=== PATIENT | female | born 1965 | race Hispanic/Latino ===

== ENCOUNTER 2017-12-30 10:11 | Emergency (ER) | payer BC, OTHER ==
[2017-12-30 10:24] VITALS: BMI 41.5
--- NOTE | 2017-12-30 11:13 | ED PDOC ---
Lower Extremity Pain/Injury Time Seen by Provider: 12/30/17 10:38 Chief Complaint (Nursing): Lower Extremity Problem/Injury Chief Complaint (Provider): Swelling of Bilateral Lower Extremities History Per: Patient History/Exam Limitations: no limitations Onset/Duration Of Symptoms: Days (3x), Worse Since Current Symptoms Are (Timing): Still Present Additional Complaint(s): 52 year old female with a past medical history of hypertension and status post partial thyroidectomy presents to the ED for an evaluation of bilateral lower legs swelling onset 3 days. Patient takes Synthroid and was recently started on hypertensive medication and Lisinopril 10mg. Patient also has been traveling by car on long trips. She denies calf pain, fever, shortness of breath or chest pain. PMD: Fransico Suarez Past Medical History Reviewed: Historical Data, Nursing Documentation, Vital Signs Vital Signs: Last Vital Signs Temp 98 F 12/30/17 10:23 Pulse 72 12/30/17 10:23 Resp BP 137/80 12/30/17 10:23 Pulse Ox 98 12/30/17 10:23 - Medical History PMH: HTN - Surgical History Surgical History: Tonsillectomy Other surgeries: partial thyroidectomy - Family History Family History: States: Unknown Family Hx - Social History Ex-Smoker (has not smoked in the last 12 months): No Alcohol: Social Drugs: Denies - Immunization History Hx Tetanus Toxoid Vaccination: No Hx Influenza Vaccination: No Hx Pneumococcal Vaccination: No - Home Medications Home Medications: Ambulatory Orders Medication Instructions Recorded amLODIPine [Norvasc] 5 mg PO DAILY #30 tab 12/30/17 - Allergies Allergies/Adverse Reactions: Allergies Allergy/AdvReac Type Severity Reaction Status Date / Time latex Allergy RASH Verified 07/17/15 16:59 shellfish derived Allergy ANAPHYLAXIS Verified 07/17/15 16:59 shrimp Allergy ANAPHYLAXIS Verified 07/17/15 16:59 Review of Systems ROS Statement: Except As Marked, All Systems Reviewed And Found Negative Constitutional: Negative for: Fever Cardiovascular: Negative for: Chest Pain Respiratory: Negative for: Shortness of Breath Musculoskeletal: Positive for: Foot Pain (bilateral). Negative for: Other ( calf pain) Physical Exam - Reviewed Nursing Documentation Reviewed: Yes Vital Signs Reviewed: Yes - Physical Exam Appears: Positive for: Non-toxic, No Acute Distress Head Exam: Positive for: ATRAUMATIC, NORMAL INSPECTION, NORMOCEPHALIC Skin: Positive for: Normal Color, Warm, Dry Cardiovascular/Chest: Positive for: Regular Rate, Rhythm. Negative for: Murmur Respiratory: Positive for: Normal Breath Sounds. Negative for: Decreased Breath Sounds, Wheezing, Respiratory Distress Extremity: Positive for: Normal ROM, Swelling (2+ bilateral feet, ankle to mid pineda). Negative for: Calf Tenderness, Deformity, Other (erythema, Delphine's sign ) Neurologic/Psych: Positive for: Alert, Oriented (x3) - Laboratory Results Result Diagrams: 12/30/17 11:20 12/30/17 12:25 - ECG O2 Sat by Pulse Oximetry: 98 (RA) Pulse Ox Interpretation: Normal Medical Decision Making Medical Decision Making: Time: 1100 Initial Impression: swelling of bilateral lower extremities Initial Plan: --CMP --Thyroid Stimulating Hormone --CBC w/ Differential --Duplex Lower Extremity Vein Bilat [US] --Reevaluation Scribe Attestation: Documented by Lorenzo Wise, acting as a scribe for Pietro Molina MD Provider Scribe Attestation: All medical record entries made by the Scribe were at my direction and personally dictated by me. I have reviewed the chart and agree that the record accurately reflects my personal performance of the history, physical exam, medical decision making, and the department course for this patient. I have also personally directed, reviewed, and agree with the discharge instructions and disposition. Disposition - Clinical Impression Clinical Impression: Drug effect - Patient ED Disposition Is Patient to be Admitted: No Counseled Patient/Family Regarding: Studies Performed, Diagnosis, Need For Followup, Rx Given - Disposition Referrals: Burton Manning MD [Staff Provider] - Disposition: Routine/Home Disposition Time: 13:44 Condition: FAIR Prescriptions: amLODIPine [Norvasc] 5 mg PO DAILY #30 tab Instructions: Side Effects From Medicines Forms: [employer] ([place]ian)
[2017-12-30 11:44] LABS: BASO % 0.3 % (0.0-2.0); EOS # 0.1 K/uL (0.0-0.7); EOS % 1.9 % (0.0-4.0); HEMOGLOBIN 13.9 g/dL (12.0-16.0); LYMPH # 2.1 K/uL (1.0-4.3); MEAN CELL VOLUME 90.8 fl (81.0-99.0); MEAN CORPUSCULAR HEMOGLOBIN 30.7 pg (27.0-31.0); MEAN CORPUSCULAR HGB CONC 33.8 g/dL (33.0-37.0); MEAN PLATELET VOLUME 10.1 fl (7.2-11.7); MONO # 0.6 K/uL (0.0-0.8); MONO % 7.7 % (0.0-10.0); NEUT # 4.5 K/uL (1.8-7.0); NEUT % 61.1 % (50.0-75.0); RBC 4.53 Mil/uL (3.80-5.20); RED CELL DISTRIBUTION WIDTH 13.7 % (11.5-14.5); WHITE BLOOD COUNT 7.3 K/uL (4.8-10.8)
[2017-12-30 13:08] LABS: ALB/GLOB RATIO 1.6 (1.0-2.1); ALBUMIN 4.2 g/dL (3.5-5.0); ALT/SGPT 41 U/L (9-52); AST/SGOT 34 U/L (14-36); BLOOD UREA NITROGEN 15 mg/dl (7-17); CALCIUM 9.1 mg/dL (8.4-10.2); GFR AFRICAN-AMERICAN > 60; GFR NON-AFRICAN AMERICAN > 60
--- NOTE | 2017-12-30 13:31 | US ---
Date of service: 12/30/2017 PROCEDURE: Bilateral lower extremity venous duplex Doppler. HISTORY: Swelling COMPARISON: None available. TECHNIQUE: Bilateral common femoral, superficial femoral, popliteal and posterior tibial veins were evaluated. Flow was assessed with color Doppler, compressibility, assessment of phasic flow and augmentation response. FINDINGS: COMMON FEMORAL VEIN: Right CFV: Unremarkable. Left CFV: Unremarkable. SUPERFICIAL FEMORAL VEIN: Right SFV: Unremarkable. Left SFV: Unremarkable. POPLITEAL VEIN: Right Popliteal: Unremarkable. Left Popliteal: Unremarkable. POSTERIOR TIBIAL VEIN: Right PTV: Unremarkable. Left PTV: Unremarkable. OTHER FINDINGS: None. IMPRESSION: No evidence of deep venous thrombosis.
[2017-12-30 13:54] VITALS: BP 120/72; PULSE 69; RESP 18; TEMP 97.8; O2SAT 96
== END 2017-12-30 13:57 | disposition home or self-care (01) ==
LOC: H.ER 10:11
DX: T50.905A Adverse effect of unspecified drugs, medicaments and biological substances, initial encounter (principal); I10 Essential (primary) hypertension; Z87.891 Personal history of nicotine dependence